=== PATIENT | female | born 1975 | race Asian ===

== ENCOUNTER → 2017-10-03 | Outpatient (CLI) | payer OTHER ==
[~2017-10-03] MED LIST: ALBIPROI INH; FLUT110OIA IH
== END ==
LOC: LAB SHORT 16:30 → LAB 16:30 → LAB FUT 10-03 16:40 → EDSTATUS 10-03 16:40
PROVIDERS: Student in an Organized Health Care Education/Training Program
DX: Z01.419 Encounter for gynecological examination (general) (routine) without abnormal findings (principal)
CPT/HCPCS: G0145

== ENCOUNTER 2020-11-21 16:45 | Emergency (ER) | payer OTHER ==
[~2020-11-21] VITALS: Ht 157.5 cm; Wt 54.4 kg
[2020-11-21] MEDS ORDERED: POLYMYXIN B-TMP10 ML LEFTEAR ×2 (17:28→17:30)
== END 2020-11-21 17:37 | disposition home or self-care (01) ==
LOC: ER 16:45
DX: T16.2XXA Foreign body in left ear, initial encounter (principal); H60.92 Unspecified otitis externa, left ear; Z91.041 Radiographic dye allergy status; Z88.1 Allergy status to other antibiotic agents
CPT/HCPCS: 69200; 99282-25; A9270

== ENCOUNTER 2022-06-07 10:44 | Day surgery (SDC) | payer OTHER ==
[~2022-06-07] VITALS: Ht 157.5 cm; Wt 62.0 kg
[~2022-06-07 10:44] MED LIST changes: +POLYMYXIN B-TMP10 ML LEFTEAR
== END 2022-06-07 13:25 | disposition home or self-care (01) ==
LOC: ORSCSDS 10:44
PROVIDERS: Internal Medicine Gastroenterology
PROC: 0DBM8ZX Excision of Descending Colon, Via Natural or Artificial Opening Endoscopic, Diagnostic (ICD-10-PCS; principal; 2022-06-07 12:30)
PROC: 0DBK8ZX Excision of Ascending Colon, Via Natural or Artificial Opening Endoscopic, Diagnostic (ICD-10-PCS; principal; 2022-06-07 12:30)
DX: K59.00 Constipation, unspecified (principal); Z80.0 Family history of malignant neoplasm of digestive organs; D12.2 Benign neoplasm of ascending colon; D12.4 Benign neoplasm of descending colon; J44.9 Chronic obstructive pulmonary disease, unspecified; R10.9 Unspecified abdominal pain; K57.30 Diverticulosis of large intestine without perforation or abscess without bleeding
CPT/HCPCS: 88305; J2704; J7120

== ENCOUNTER 2024-07-12 09:25 | Day surgery (SDC) | payer OTHER ==
[~2024-07-12] VITALS: Ht 154.9 cm; Wt 65.9 kg
[~2024-07-12 09:25] MED LIST changes: +NS 500 ML IV ONE
[2024-07-12] MEDS ORDERED: CENTRUM SILVER1 EAC2 (10:09)
[2024-07-12] MEDS ORDERED: NS 1,000 ML IV ONE (10:21)
[2024-07-12] MEDS ORDERED: Lidocaine HCl 2% 10 ML SDA ONE (10:53)
[2024-07-12] MEDS ORDERED: propofoL 20 ML IV ONE (10:59)
[2024-07-12] MEDS ORDERED: FentaNYL Citrate 50 MCG/ML 2 ML Injection ONE (10:59)
[2024-07-12] MEDS ORDERED: Ondansetron HCl 2 MG / ML 2ML Vial ONE (11:22)
[2024-07-12 11:26] VITALS: BP 119/86
== END 2024-07-12 11:50 | disposition home or self-care (01) ==
LOC: ORSCSDS 09:25
PROVIDERS: Orthopaedic Surgery
PROC: 0LB50ZZ Excision of Right Lower Arm and Wrist Tendon, Open Approach (ICD-10-PCS; principal; 2024-07-12 11:15)
DX: M67.431 Ganglion, right wrist (principal); R22.31 Localized swelling, mass and lump, right upper limb; M25.531 Pain in right wrist; J45.909 Unspecified asthma, uncomplicated; Z79.899 Other long term (current) drug therapy
CPT/HCPCS: 88304; J2003; J2405; J2704; J3010; J7040